=== PATIENT | female | born 1950 | race Caucasian/White ===

== ENCOUNTER 2018-10-09 05:30 | Inpatient (IN) | payer OTHER ==
[2018-10-02 13:07] LABS: HEMATOCRIT 46.1 % (37.0-47.0); HEMOGLOBIN 15.6 gm/dL (12.0-15.0); MCH 31.9 pg (26.0-34.0); MCHC 33.8 g/dL (28.0-37.0); MCV 94.3 fL (80.0-100.0); RBC 4.89 mil/uL (4.20-5.00); WBC 7.2 thou/uL (4.0-11.0)
[2018-10-02 13:10] LABS: URINE BILIRUBIN NEGATIVE (Negative); URINE BLOOD 1+ (Negative); URINE CLARITY CLEAR; URINE COLOR YELLOW; URINE GLUCOSE-RANDOM* NEGATIVE (Negative); URINE KETONES NEGATIVE (Negative); URINE LEUKOCYTES-REFLEX NEGATIVE (Negative); URINE NITRITE-REFLEX NEGATIVE (Negative); URINE PROTEIN (DIPSTICK) NEGATIVE (Negative); URINE UROBILINOGEN 0.2 E.U./dl (0.2-1.0)
[2018-10-02 13:15] LABS: ALBUMIN 3.9 g/dL (3.4-5.0); CALCIUM 10.6 mg/dL (8.5-10.1); CREATININE 0.7 mg/dL (0.6-1.0); POTASSIUM 4.3 mmol/L (3.5-5.1)
[2018-10-02 13:25] LABS: PROTIME 10.1 Seconds (9.3-11.4)
[2018-10-02 13:28] LABS: BACTERIA-REFLEX 1-9 Few /HPF (None Seen); CASTS None Seen /LPF (None Seen); CRYSTALS None Seen /LPF (None Seen); SQUAMOUS 0-3 Few /LPF (0-3); URINE RBC 0-2 Rare /HPF (0-2); URINE WBC-REFLEX 0-5 Rare /HPF (0-5)
--- NOTE | 2018-10-02 15:58 | EKG ---
[place] [address] [facility] [place] [address] ELECTROCARDIOGRAM REPORT Name: RACHELLE CAMARGO Room #: PRE IN [facility]#: [id number] ������������������ Admission: ������������������ Attend Phys: Silvio Lauren MD Discharge: ������������������ Date of : 50 Report #: [id number] ����������������������������������������������������������������� [id number] THIS REPORT FOR: //name// [facility] Test Date: 2018-10-02 Test Time: 13:01:41 Pat Name: RACHELLE CAMARGO Department: Room: Gender: F Office Services Representative: Mack PALMA : 1950 Requested By: Silvio Lauren Order Number: [id number] MD: Bud Encinas Measurements Intervals [place] Rate: 66 P: 63 [place]: 196 QRS: -20 QRSD: 91 T: 40 QT: 378 QTc: 396 Interpretive Statements Sinus rhythm Borderline left axis deviation No previous ECG available for comparison Electronically Signed On 10-02-2018 15:57:45 DIVISION HEAD by Bud Encinas [email or web address] ��������������������������������������������� <ELECTRONICALLY SIGNED> ���������������������������������������� By: Bud Encinas MD ��������������������������������������������� 10/02/18 1557 1301 1301 Bud Encinas MD /ARIE
[~2018-10-09] VITALS: Ht 162.6 cm; Wt 85.7 kg
[~2018-10-09 05:30] MED LIST: ANTIOXIDANT SO1 EAC1 PO; ASPIR 8181 MG PO; NEURONTIN300 MG PO; PROAIR HFA8.5 GM INH; PROBIOTIC1 EAC1 PO; [UNRECOGNIZED DRUG - OTHER] PO; [UNRECOGNIZED DRUG - OTHER] PO; [UNRECOGNIZED DRUG - OTHER] PO; [UNRECOGNIZED DRUG - OTHER] PO; [UNRECOGNIZED DRUG - OTHER] PO
[2018-10-09 10:44] VITALS: BP 154/77
[2018-10-09 17:45] VITALS: BP 139/59
[2018-10-09 17:55] VITALS: BP 139/59
[2018-10-09 18:15] VITALS: BP 150/72
--- NOTE | 2018-10-09 19:25 | NUR ---
Pt arrived to floor from recovery room per cart at 1745 in stable condition. Post op assessment completed.vss.Clear liq. given and well tolerated.Family in room with pt.Report off to justus hyatt.
[2018-10-09 20:50] VITALS: BP 145/65
[2018-10-09 22:00] VITALS: BP 127/52
--- NOTE | 2018-10-10 03:14 | NUR ---
PT DENIED PAIN SO FAR.USES A BEDPAN FOR ELIMINATION.ABDUCTOR PILLOW IN BETWEEN LEGS.PT ON 2L/NC.VS STABLE.CONT ON IVF AND IV ABX ORDERED.PT ABLE TO MAKE HER NEEDS KNOWN.CALL LIGHT WITHIN REACH.
[2018-10-10 03:30] VITALS: BP 121/39
[2018-10-10 05:30] LABS: HEMATOCRIT 35.2 % (37.0-47.0); HEMOGLOBIN 11.7 gm/dL (12.0-15.0); MCH 31.1 pg (26.0-34.0); MCHC 33.1 g/dL (28.0-37.0); MCV 93.8 fL (80.0-100.0); RBC 3.75 mil/uL (4.20-5.00); RDW 13.9 % (10.5-14.5); WBC 15.9 thou/uL (4.0-11.0)
[2018-10-10 07:30] VITALS: BP 109/58
[2018-10-10] MEDS ORDERED: TRI-BUFFERED A325 M1 PO (09:53)
--- NOTE | 2018-10-10 10:43 | NUR ---
ASSESSMENT-PT LIVES AT HOME WITH HER SPOUSE WHO HAS M.S. AND IS WC BOUND. IS HIS PRIMARY CAREGIVER AND HAS BEEN DOING THE HOUSEHOLD THINGS- COOKING, CLEANING AND LAUNDRY. THEY HAVE 2 DTRS (9 BLOCKS AWAY AND 2 MILES AWAY). THEY HAVE A RAMP TO ENTER THE HOME AND A STAIRGLIDE TO BASEMENT AND UPSTAIRS. LAUNDRY LOCATED IN BASEMENT. PT HS NOT HAD HH SERVICES. SHE HAS A STRAIGHT WALKER THAT BELONGS TO HER . PT DRIVES. FOLLOWING TO ASSIST WITH DC PLANNING.
[2018-10-10 11:30] VITALS: BP 115/58
--- NOTE | 2018-10-10 14:36 | NUR ---
PATIENT WAS FRIENDLY AND VERY TALKATIVE. SHE WAS LOOKING FORWARD TO WORKING WITH PHYSICAL THERAPY AND WAS SUCCESSFUL WITH LITTLE PAIN FOLLOWING. AFTER PHYSICAL THERAPY, THE DAUGHTER ARRIVED TO PRODUCTION MACHINE TENDER PATIENT DUE TO PATIENT BEING DISCHARGED.
[2018-10-10 14:50] VITALS: BP 115/58
--- NOTE | 2018-10-10 15:12 | NUR ---
I have reviewed and concur with student documentation.
--- NOTE | 2018-10-10 16:30 | NUR ---
Pt in and out of bed today to bathroom with assist and walker.Therapist ambulated with pt in hallways and good endurance noted.Dr Lauren scullion chief here and dc order noted.DC summary compiled and reviewed with pt and dtr.seaport planning manager arraged for roller walker prior to dc home at 1630.
--- NOTE | 2018-10-11 11:24 | O ---
[facility] [place] [address] OPERATIVE REPORT Name: RACHELLE CAMARGO Patrick Room #: 418-P [facility] M.R.#: [id number] Admission: 10/09/18 ������������������ Attend Phys: Silvio Lauren MD Discharge: 10/10/18 ������������������ Date of : 50 Report #: [id number] THIS REPORT FOR: //name// CC: Physician staff MARGARITA RANGEL Lauren DATE OF SERVICE: 10/09/2018 PREOPERATIVE DIAGNOSIS: Left hip osteoarthritis. POSTOPERATIVE DIAGNOSIS: Left hip osteoarthritis. PROCEDURE: Left total hip arthroplasty. SURGEON: Silvio Lauren MD. SHIP PAINTER HELPER: Niya Olmedo PA-C. INDICATIONS FOR SHIP PAINTER HELPER: Throughout the case, extensive retraction and manipulation of the hip was required including dislocation and reduction. This was afforded to me by my assistant professor of business. ANESTHESIA: General. IMPLANTS: [employer] size 52 R3 acetabular cup with a size 14 standard offset Synergy press-fit stem with a size 36+0 cobalt chrome head. ESTIMATED BLOOD LOSS: 150 mL. COMPLICATIONS: None. SPECIMENS: None. CONDITION UPON LEAVING THE OPERATING ROOM: Stable. INDICATIONS FOR PROCEDURE: The patient is a 67-year-old female with left hip osteoarthritis who failed conservative measures for this and elected for left total hip arthroplasty. DESCRIPTION OF PROCEDURE: Risks, benefits, alternatives, complications were discussed in detail with the patient including but not limited to risk of anesthesia, risk of damage to nerves, arteries, blood vessels, risk for infection, bleeding, risk for continued hip pain, leg length discrepancy, instability and need for reoperation. Informed consent was obtained from the patient. Left hip was appropriately marked in the preoperative holding area. [facility] [address] [place] [address] OPERATIVE REPORT Name: RACHELLE CAMARGO Patrick Room #: 418-P [facility] .R.#: [id number] Admission: 10/09/18 ������������������ Attend Phys: Silvio Lauren MD Discharge: 10/10/18 ������������������ Date of : 50 Report #: [id number] Ancef was given for preoperative antibiotics. She was brought to the operating room and placed in supine position on operating room table. General anesthesia was induced without complications. She was then placed in the right lateral decubitus position with the left hip uppermost. The left hip and lower extremity were prepped and draped in normal sterile fashion. Timeout was performed properly identifying the patient and procedure as well as the instrumentation and implants. All in the operating room were in agreement. Standard posterior approach to the hip was made with 10 blade through the skin. Dissection was taken down the fascia with Bovie cautery and a Bishop elevator was used to clean off the fascia. Fresh 10 blade was used to make a fascial incision. This was taken proximally and distally with curved Ochoa scissor. Charnley retractor was placed. Trochanteric bursa was taken down with Bovie cautery. Piriformis tendon was identified, tagged and taken down with Bovie. Short external rotators were also taken down with Bovie cautery. Capsulotomy was made and capsule ends were tagged for later repair. The hip was dislocated and there were extensive osteoarthritic changes in the femoral head. Femoral neck cut was made 1 cm proximal to lesser trochanter based on preoperative templating. Femoral head was removed. Deep acetabular retractors were placed and the labrum was removed sharply. Pulvinar was removed with Bovie cautery. The acetabulum was then sequentially reamed up to a size 52, at which point there was excellent bleeding cancellous bone. A 51 trial cup was placed, found to have a good fit. A final size 52 R3 acetabular cup was then placed and seated. One acetabular screw was placed for backup fixation. Polyethylene liner for 36 head was placed. Attention was then turned to the femur. This was reamed and broached up to a size 14, at which point, the size 14 broach was stable. This was trialed with a high offset neck with a 36+0 head. The hip was not able to be reduced. It was then trialed with a standard offset neck with a 36+0 head. Hip was reduced, taken through range of motion, found to be stable, found to have equal leg lengths. The hip was dislocated and broach was removed. Final size 14 standard offset Synergy press-fit stem was placed. This was then trialed again with a 36+0 head. Hip was reduced, taken through range of motion, found to be stable, found to have equal leg lengths. Hip was dislocated one last time and a final size 36+0 cobalt chrome head was placed. Hip was reduced, taken through range of motion, found to be stable, found to have equal leg lengths. The joint was thoroughly irrigated with normal saline. A periarticular injection consisting of morphine, ropivacaine, epinephrine and Toradol was placed around the hip joint capsule. A gram of vancomycin was placed deep in the joint. The capsule and piriformis were repaired with 0 FiberWire. Fascia was closed with 0 Vicryl, skin was closed with 2-0 Vicryl, 3-0 Monocryl. Dermabond and a DIONICIO dressing was applied. The patient tolerated this procedure well and went to the recovery room under care of anesthesia postoperatively. ��������������������������������������������� <ELECTRONICALLY SIGNED> ���������������������������������������� By: Silvio Lauren MD ��������������������������������������������� 10/11/18 1124 1416 1707 Silvio Lauren MD /oleksandr
--- NOTE | 2018-10-11 17:18 | NUR ---
LATE ENTRY FROM 10/10/18- PT NEEDED ROLLER WALKER FOR HOME. OFFERED OPT[employer] AND SHE HAD NO PREFERENCE TO DME CO. FAXED DRS ORDERS, H&P, FACE SHHET & ROOM # TO [facility] AND THEY DELIVERED ROLLER WALKER TO PT'S ROOM BEFORE DC.
== END 2018-10-10 16:44 | disposition home or self-care (01) | DRG 470 ==
LOC: TBA 05:30 → 4E 05:30 → PRE 05:33 → 4E 17:47
PROVIDERS: ADMIT Orthopaedic Surgery
PROC: 0SRB01A Replacement of Left Hip Joint with Metal Synthetic Substitute, Uncemented, Open Approach (ICD-10-PCS; principal; 2018-10-09)
DX: M16.12 Unilateral primary osteoarthritis, left hip (principal); Z79.82 Long term (current) use of aspirin; Z79.899 Other long term (current) drug therapy; Z88.6 Allergy status to analgesic agent; Z88.8 Allergy status to other drugs, medicaments and biological substances
CPT/HCPCS: 10783; 50010; 50101; 50382; 50414; 53000; 53078; 53367; 54118; 56524; 56527; 56528; 56530; 57095; 57103; 62110; 62900; 70005